=== PATIENT | female | born 1985 | race Hispanic/Latino ===

== ENCOUNTER 2023-01-13 06:10 | Inpatient (IN) | payer OTHER, SELFPAY ==
[~2023-01-13] VITALS: Ht 160 cm; Wt 69.4 kg
[2023-01-13] MEDS ORDERED: LACTATED RINGERS 1000ML 1,000 ML IV PRN (06:30)
[2023-01-13] MEDS ORDERED: PROMETHAZINE HCL 25 MG/ML 1ML AMPULE IM PRN (06:30)
[2023-01-13] MEDS ORDERED: LACTATED RINGERS 500 ML 500 ML IV PRN (06:30)
[2023-01-13] MEDS ORDERED: EPHEDRINE SULFATE 50 MG/ML AMPULE IVP PRN (06:30)
[2023-01-13] MEDS ORDERED: NALOXONE HCL 0.4 MG/1 ML ML IV PRN (06:30)
[2023-01-13] MEDS ORDERED: ROPIVACAINE 0.2% 100ML VIAL 100 ML EP PRN (06:30)
[2023-01-13] MEDS ORDERED: MEPERIDINE-PF 50 MG/ML SYG IVP PRN (06:30)
[2023-01-13 06:56] LABS: APPEARANCE,URINE CLOUDY (CLEAR); BILIRUBIN,URINE NEGATIVE (NEGATIVE); COLOR,URINE YELLOW (YELLOW); GLUCOSE, URINE (UA) NEGATIVE (NEGATIVE); KETONES,URINE NEGATIVE (NEGATIVE); LEUKOCYTE ESTERASE ,URINE 250 Leu/uL (NEGATIVE); NITRATE,URINE NEGATIVE (NEGATIVE); PH,URINE 6.5 (5.0-8.0); PROTEIN,URINE 20 mg/dL (NEGATIVE); UROBILINOGEN,URINE 0.2 mg/dL (0.2-1.0)
[2023-01-13 07:02] LABS: BACTERIA,URINE RARE /HPF (None Seen); MUCUS,URINE RARE LPF (None Seen); OTHER CASTS, URINE 1 /LPF (None Seen); SQUAMOUS EPITHELIAL CELL,UR MOD /HPF (0-2)
[2023-01-13 07:42] LABS: HEMATOCRIT 33.7 % (36-48); MEAN CORPUSCULAR HGB CONC 34.4 g/dL (32.0-36.0); MEAN CORPUSCULAR VOLUME 92.8 fL (79-99); RED BLOOD CELL COUNT(AUTO) 3.63 MIL/uL (4.00-5.50); RED CELL DISTRIBUTION WIDTH 13.2 % (11.0-15.5)
[2023-01-13] MEDS ORDERED: PREN1COM PO (11:32)
[2023-01-13] MEDS ORDERED: OXYTOCIN-LR 20 UNITS/1000 ML 1,000 ML IV SCH (12:32)
[2023-01-13] MEDS ORDERED: LIDOCAINE HCL 1% 20 ML VIAL ONE (12:38)
[2023-01-13] MEDS ORDERED: METHYLERGONOVINE MALEATE 0.2 MG/1 ML ML ONE (12:38)
[2023-01-13] MEDS ORDERED: MISOPROSTOL 200 MCG TABLET ONE (12:38)
[2023-01-13] MEDS: OXYTOCIN-LR 20 UNITS/1000 ML 1,000 ML IV SCH ×2 (13:08→16:32)
[2023-01-13] MEDS ORDERED: ACETAMINOPHEN 325 MG TAB PO PRN (13:30)
[2023-01-13] MEDS ORDERED: LANOLIN 30GM OINTMENT TP PRN (13:30)
[2023-01-13] MEDS ORDERED: ACETAMINOPHEN WITH CODEINE 1 TAB TAB PO PRN (13:30)
[2023-01-13] MEDS ORDERED: WITCH HAZEL 1 PAD TP PRN (13:30)
[2023-01-13] MEDS ORDERED: BENZOCAINE/LANOLIN/ALOE VERA 60 ML AEROSOL TP PRN (13:30)
[2023-01-13 18:58] VITALS: BP 112/68
[2023-01-13] MEDS: IBUPROFEN 600 MG TABLET PO PRN (20:36)
[2023-01-13] MEDS: DOCUSATE SODIUM 100 MG CAP PO SCH (20:37)
[2023-01-13 22:56] VITALS: BP 102/68
[2023-01-14 02:20] VITALS: BP 97/64
[2023-01-14 07:26] VITALS: BP 128/66
[2023-01-14] MEDS: DOCUSATE SODIUM 100 MG CAP PO SCH (09:30)
[2023-01-14] MEDS: IBUPROFEN 600 MG TABLET PO PRN (09:31)
[2023-01-14 12:17] VITALS: BP 96/63
== END 2023-01-14 15:30 | disposition home or self-care (01) | DRG 807 ==
LOC: EDSTATUS 06:10 → OBSVTOIN 06:13 → LDH 06:13 → WSH 18:53
PROVIDERS: ADMIT Obstetrics & Gynecology; ATTEND Obstetrics & Gynecology
PROC: 10E0XZZ Delivery of Products of Conception, External Approach (ICD-10-PCS; principal; 2023-01-13)
PROC: 0HQ9XZZ Repair Perineum Skin, External Approach (ICD-10-PCS; 2023-01-13)
PROC: 10907ZC Drainage of Amniotic Fluid, Therapeutic from Products of Conception, Via Natural or Artificial Opening (ICD-10-PCS; 2023-01-13)
DX: O70.0 First degree perineal laceration during delivery (principal); Z37.0 Single live birth; Z3A.38 38 weeks gestation of pregnancy
CPT/HCPCS: 36415; 81001; 85027; 86592; 86850; 86900; 86901; 87088; 87340; G0378; J2210; J2590